=== PATIENT | male | born 1945 | race Caucasian/White ===

== ENCOUNTER 2022-08-29 08:11 | Day surgery (SDC) | payer OTHER | END 2022-08-29 22:48 | disposition home or self-care (01) | LOC: CT 08:11 | DX: I25.10 Atherosclerotic heart disease of native coronary artery without angina pectoris (principal); E78.5 Hyperlipidemia, unspecified; R93.1 Abnormal findings on diagnostic imaging of heart and coronary circulation; R07.89 Other chest pain; E11.9 Type 2 diabetes mellitus without complications; Z79.4 Long term (current) use of insulin | CPT/HCPCS: 75574; Q9967 ==

== ENCOUNTER 2022-10-19 06:46 | Day surgery (SDC) | payer OTHER ==
[2022-10-19] VITALS (10 sets, daily range): BP systolic 99–131; BP diastolic 56–98
[~2022-10-19] VITALS: Ht 193 cm; Wt 116.0 kg
[~2022-10-19 06:46] MED LIST: ALGAL OMEGA-3200 MG PO; ALLO100 PO; Aspir 8181 MG PO; INSULANI; JARDIANCE25 MG PO; Lisinopril2.5 MG PO; METF500 PO; MULTIVITAMINS; NITR.4SL SL; NOVOLOG100 UNIT/3; RUTIN; TERA5 PO; TOPROL XL25 MG PO; ZOCOR20 MG PO
--- NOTE | 2022-10-19 09:26 | NUR ---
PT FINISHED EATING BREAKFAST AND IS NOW SITTING UP RESTING IN RECLINER. PT A&Ox4.
--- NOTE | 2022-10-19 10:21 | NUR ---
2CC REMOVED FROM TR BAND. SITE SOFT AND NON-TENDER PER PT. NO BLEEDING NOTED.
--- NOTE | 2022-10-19 10:55 | NUR ---
6 CC OF AIR REMOVED OUT OF NOW DEFLATED RIGHT TR BAND WITH NO HEMATOMA, NO PULSATILE BLEEDING NON-TENDER WITH WRIST BOARD IN PLACE. DISCHARGE INSTRUCTIONS REVIEWED AND ALL QUESTIONS ANSWERED. CALL LIGHT IN REACH.
--- NOTE | 2022-10-19 12:03 | NUR ---
RIGHT RADIAL SITE STILL SOFT NON-TENDER WITH NO HEMATOMA, NO PULSTILE BLEEDING AND WRIST BOARD IN PLACE. DEFLATED RIGHT RADIAL TR BAND REMOVED AND POLYMEM PLACED OVER R RADIAL SITE WITH WRIST BOARD IN PLACE. PT AMBULATED TO BR TO VOID. 20 G IV REMOVED FROM RIGHT AC WITH INTACT CANNULA. PT ESCORTED OUT VIA WHEELCHAIR ESCORT.
== END 2022-10-19 12:00 | disposition home or self-care (01) ==
LOC: MHTC 06:46
DX: I25.10 Atherosclerotic heart disease of native coronary artery without angina pectoris (principal); R07.89 Other chest pain; E78.2 Mixed hyperlipidemia; I12.9 Hypertensive chronic kidney disease with stage 1 through stage 4 chronic kidney disease, or unspecified chronic kidney disease; E11.22 Type 2 diabetes mellitus with diabetic chronic kidney disease; N18.32 Chronic kidney disease, stage 3b; Z79.4 Long term (current) use of insulin; Z79.899 Other long term (current) drug therapy
CPT/HCPCS: 76937; 82947; 85347; 93454; 93571; 99152; 99153; A9270; C1769; C1887; C1894; J1644; J2250; J3010; J7030; J7050; Q9967

== ENCOUNTER → 2023-01-11 | Outpatient (CLI) | payer OTHER | LOC: LAB SHORT 12:01 → LAB 12:01 | DX: C44.612 Basal cell carcinoma of skin of right upper limb, including shoulder (principal) | CPT/HCPCS: 88305 ==

== ENCOUNTER → 2024-05-12 | Outpatient (CLI) | payer MEDICARE | END | disposition home or self-care (01) | LOC: LAB SHORT 13:39 → LAB 13:39 | DX: J02.9 Acute pharyngitis, unspecified (principal) | CPT/HCPCS: 87081 ==